=== PATIENT | female | born 1975 | race Two or more races ===

== ENCOUNTER → 2016-09-11 | Outpatient (CLI) | payer OTHER ==
[2016-09-11 10:11] LABS: ABSOLUTE LYMPHOCYTES (AUTO) 0.9 10^3/uL (0.5-4.7); ABSOLUTE MONOCYTES (AUTO) 0.3 10^3/uL (0.1-1.4); ABSOLUTE NEUT (AUTO) 1.8 10^3/uL (1.7-8.2); BASOPHILS % (AUTO) 0.2 % (0-2); EOSINOPHILS % (AUTO) 0.7 % (0-6); HEMATOCRIT 32.4 % (36.0-47.0); HEMOGLOBIN 10.8 g/dL (12.0-15.5); LYMPHOCYTES % (AUTO) 30.8 % (13-45); MEAN CORPUSCULAR HGB CONC 33.4 g/dL (32.0-36.0); MEAN CORPUSCULAR VOLUME 78 fl (80-97); MONOCYTES % (AUTO) 10.7 % (3-13); RED BLOOD COUNT 4.16 10^6/uL (3.72-5.28); RED CELL DISTRIBUTION WIDTH 15.1 % (11.5-14.0); SEGMENTED NEUTROPHILS % (AUTO) 57.6 % (42-78); WHITE BLOOD COUNT 3.1 10^3/uL (4.0-10.5)
[2016-09-12 13:38] LABS: RA LATEX TURBIDITY 13.3 IU/mL (0.0-13.9)
== END ==
LOC: CCC 08:46
DX: M25.50 Pain in unspecified joint (principal); D72.819 Decreased white blood cell count, unspecified
CPT/HCPCS: 36415; 83036; 83520; 85025; 86225; 86235

== ENCOUNTER → 2016-10-15 | Outpatient (CLI) | payer OTHER ==
[2016-10-17 10:16] LABS: ALANINE AMINOTRANSFERASE 33 U/L (9-52); ALBUMIN 4.1 g/dL (3.5-5.0); ALKALINE PHOSPHATASE 87 U/L (38-126); ASPARTATE AMINO TRANSFERASE 28 U/L (14-36); BILIRUBIN,DIRECT 0.4 mg/dL (0.0-0.4); BILIRUBIN,TOTAL 0.7 mg/dL (0.2-1.3); C-REACTIVE PROTEIN < 5.0 mg/L (<10.0); CHOLESTEROL 144.76 mg/dL (0-200); DIRECT LDL 76 mg/dL (<100); TOTAL PROTEIN 9.3 g/dL (6.3-8.2); TRIGLYCERIDES 72 mg/dL (<150); VLDL CHOLESTEROL 14.4 mg/dL (10-31)
[2016-10-17 10:17] LABS: Direct HDL 36 mg/dL (>40)
== END ==
LOC: CCC 20:46
DX: Z00.00 Encounter for general adult medical examination without abnormal findings (principal)
CPT/HCPCS: 36415; 80061; 80076; 86140

== ENCOUNTER → 2016-11-06 | Outpatient (CLI) | payer OTHER ==
[2016-11-06 12:05] LABS: ALANINE AMINOTRANSFERASE 30 U/L (9-52); ALKALINE PHOSPHATASE 75 U/L (38-126); ANION GAP 12 (5-19); ASPARTATE AMINO TRANSFERASE 30 U/L (14-36); BILIRUBIN,DIRECT 0.3 mg/dL (0.0-0.4); BILIRUBIN,TOTAL 0.5 mg/dL (0.2-1.3); BLOOD UREA NITROGEN 13 mg/dL (7-20); CALCIUM 9.2 mg/dL (8.4-10.2); CARBON DIOXIDE 19 mmol/L (22-30); CHLORIDE 113 mmol/L (98-107); CHOLESTEROL 144.85 mg/dL (0-200); CREATININE RESULT 0.61 mg/dL (0.52-1.25); Direct HDL 41 mg/dL (>40); GLUCOSE 103 mg/dL (75-110); POTASSIUM 4.7 mmol/L (3.6-5.0); SODIUM 143.8 mmol/L (137-145); TOTAL PROTEIN 9.2 g/dL (6.3-8.2); TRIGLYCERIDES 69 mg/dL (<150)
[2016-11-06 12:16] LABS: DIRECT LDL 82 mg/dL (<100)
[2016-11-06 12:47] LABS: THYROID STIMULATING HORMONE 1.26 uIU/mL (0.47-4.68)
== END ==
LOC: CCC 09:46
DX: D64.9 Anemia, unspecified (principal); Z13.9 Encounter for screening, unspecified
CPT/HCPCS: 36415; 80053; 80061; 82728; 83540; 83550; 84439; 84443

== ENCOUNTER 2017-12-27 00:13 | Emergency (ER) | payer SELFPAY ==
[2017-12-27] MEDS ORDERED: ASPIRIN 81 MG TABLET, CHEWABLE PO ONE (03:09)
--- NOTE | 2017-12-27 03:53 | RADIOLOGY REPORT (SQ) ---
EXAM DESCRIPTION: XR CHEST 1 VIEW COMPLETED DATE/TME: 12/27/2017 03:09 CLINICAL HISTORY: chest pain COMPARISON: None. FINDINGS: Single frontal view of the chest. The cardiomediastinal silhouette has normal size and contour. No consolidation, pneumothorax, or pleural effusion. No displaced rib fractures identified. Upper abdominal soft tissues are unremarkable. IMPRESSION: 1. No acute pulmonary process identified.
[2017-12-27 04:26] LABS: ABSOLUTE LYMPHOCYTES (AUTO) 0.8 10^3/uL (0.5-4.7); ABSOLUTE MONOCYTES (AUTO) 0.2 10^3/uL (0.1-1.4); ABSOLUTE NEUT (AUTO) 1.2 10^3/uL (1.7-8.2); BASOPHILS % (AUTO) 0.6 % (0-2); EOSINOPHILS % (AUTO) 0.5 % (0-6); HEMATOCRIT 30.6 % (36.0-47.0); HEMOGLOBIN 10.3 g/dL (12.0-15.5); MEAN CORPUSCULAR HEMOGLOBIN 27.1 pg (27.0-33.4); MEAN CORPUSCULAR HGB CONC 33.6 g/dL (32.0-36.0); MEAN CORPUSCULAR VOLUME 81 fl (80-97); PLATELET COUNT 169 10^3/uL (150-450); RED CELL DISTRIBUTION WIDTH 15.5 % (11.5-14.0); SEGMENTED NEUTROPHILS % (AUTO) 53.9 % (42-78); TOTAL CELLS COUNTED % (AUTO) 100 %; WHITE BLOOD COUNT 2.2 10^3/uL (4.0-10.5)
[2017-12-27 04:56] LABS: ALANINE AMINOTRANSFERASE 35 U/L (9-52); ALBUMIN 3.8 g/dL (3.5-5.0); ALKALINE PHOSPHATASE 80 U/L (38-126); ANION GAP 13 (5-19); ASPARTATE AMINO TRANSFERASE 36 U/L (14-36); BILIRUBIN,DIRECT 0.2 mg/dL (0.0-0.4); BILIRUBIN,TOTAL 0.5 mg/dL (0.2-1.3); BLOOD UREA NITROGEN 10 mg/dL (7-20); CALCIUM 8.7 mg/dL (8.4-10.2); CARBON DIOXIDE 20 mmol/L (22-30); CHLORIDE 109 mmol/L (98-107); CREATINE KINASE 37 U/L (30-135); GLUCOSE 102 mg/dL (75-110); POTASSIUM 3.6 mmol/L (3.6-5.0); SODIUM 142.2 mmol/L (137-145); TOTAL PROTEIN 9.6 g/dL (6.3-8.2)
[2017-12-27 05:06] LABS: CREATINE KINASE MB 0.35 ng/mL (<4.55)
[2017-12-27 05:10] LABS: TROPONIN I < 0.012 ng/mL
--- NOTE | 2017-12-27 06:20 | ER Document Report ---
ED General - General Chief Complaint: Numbness Stated Complaint: WEAKNESS/NUMBNESS Time Seen by Provider: 12/27/17 02:53 Mode of Arrival: Ambulatory Information source: Patient Notes: Patient presents with generalized weakness and bilateral numbness and tingling to bilateral lower extremities accompanied by chest pain and shortness of breath for three months. Patient reports symptoms have not changed but she is unable to get in to see her provider at the [facility]. Patient reports recent diagnosis of lupus. TRAVEL OUTSIDE OF THE [place] IN LAST 30 DAYS: No - Related Data Allergies/Adverse Reactions: No Known Allergies Allergy (Unverified 12/27/17 03:44) Past Medical History - General Information source: Patient - Social History Smoking Status: Never Smoker Frequency of alcohol use: None Drug Abuse: None Family History: Reviewed & Not Pertinent Patient has suicidal ideation: No Patient has homicidal ideation: No - Medical History Medical History: Other - Lupus Renal/ Medical History: Denies: Hx Peritoneal Dialysis Past Surgical History: Reports: Hx Section - x5 - Immunizations Hx Diphtheria, Pertussis, Tetanus Vaccination: No Review of Systems - Review of Systems Constitutional: See HPI EENT: No symptoms reported Cardiovascular: See HPI Respiratory: See HPI Gastrointestinal: No symptoms reported Genitourinary: No symptoms reported Female Genitourinary: No symptoms reported Musculoskeletal: See HPI Skin: No symptoms reported Hematologic/Lymphatic: No symptoms reported Neurological/Psychological: No symptoms reported Physical Exam - Vital signs Vitals: Temp Pulse Resp BP Pulse Ox 97.5 F 74 16 165/88 H 99 12/27/17 00:19 12/27/17 00:19 12/27/17 00:19 12/27/17 00:19 12/27/17 00:19 - Notes Notes: PHYSICAL EXAMINATION: GENERAL: Well-nourished and in no acute distress. HEAD: Atraumatic, normocephalic. EYES: Pupils equal round and reactive to light, extraocular movements intact, sclera anicteric, conjunctiva are normal. ENT: nares patent, oropharynx clear without exudates. Moist mucous membranes. NECK: Normal range of motion, supple without lymphadenopathy LUNGS: Breath sounds clear to auscultation bilaterally and equal. No wheezes rales or rhonchi. HEART: Regular rate and rhythm without murmurs ABDOMEN: Soft, nontender, normoactive bowel sounds. No guarding, no rebound. No masses appreciated. EXTREMITIES: Normal range of motion, no pitting or edema. No cyanosis. NEUROLOGICAL: No focal neurological deficits. Moves all extremities spontaneously and on command. PSYCH: Normal mood, normal affect. SKIN: Warm, Dry, normal turgor, no rashes or lesions noted. Course - Re-evaluation Re-evalutation: Patients physical exam is normal. Neuro exam unremarkable. All labs are unremarkable other than a low WBC of 2.2 which patient reports is chronic. Cardiac enzymes all normal. EKG is unremarkable. Chest xray is without any acute abnormalities. Patient reports difficulties getting into her primary care , will also give info for additional primary care facilities per her request. - Vital Signs Vital signs: Temp Pulse Resp BP Pulse Ox 97.5 F 65 17 140/98 H 100 12/27/17 00:19 12/27/17 02:00 12/27/17 06:46 12/27/17 06:47 12/27/17 06:47 - Laboratory Result Diagrams: 12/27/17 04:10 12/27/17 04:10 Laboratory results interpreted by me: 12/27/17 12/27/17 04:10 04:10 WBC 2.2 L Hgb 10.3 L Hct 30.6 L RDW 15.5 H Absolute Neutrophils 1.2 L Chloride 109 H Carbon Dioxide 20 L Creatinine 0.47 L Total Protein 9.6 H Discharge - Discharge Clinical Impression: Exacerbation of systemic lupus Condition: Stable Disposition: HOME, SELF-CARE Additional Instructions: Your symptoms are consistent with a flareup of your lupus. Please follow-up with your primary care provider as your exam here today was normal. I have included the name of an additional primary care provider that may be able to work with you as far as you getting you and soon to be seen. Please return to the emergency department any time if you experience worsening of your symptoms, chest pain, shortness of breath or fever. Prescriptions: Ibuprofen 600 mg PO Q6H #30 tablet Ibuprofen [Ibu] 600 mg PO Q6H #30 tablet Referrals: [facility] [Provider Group] - Follow up as needed
[2017-12-27] MEDS ORDERED: IBUPROFEN 600 MG TABLET PO ONE (06:25)
[2017-12-27 06:53] VITALS: BP 140/98
--- NOTE | 2017-12-27 18:31 | EKG REPORT ---
SEVERITY:- NORMAL ECG - SINUS RHYTHM : Confirmed by: Alessandra Price MD 27-Dec-2017 18:30:26
== END 2017-12-27 06:53 | disposition home or self-care (01) ==
LOC: ER 00:13
DX: M32.9 Systemic lupus erythematosus, unspecified (principal); R53.1 Weakness; R20.0 Anesthesia of skin; R20.2 Paresthesia of skin; R07.9 Chest pain, unspecified; R06.02 Shortness of breath; D72.829 Elevated white blood cell count, unspecified
CPT/HCPCS: 36415; 71045; 80053; 82550; 82553; 84484; 85025; 93005; 93010; 99285